=== PATIENT | female | born 1960 | race Caucasian/White ===

== ENCOUNTER → 2017-06-12 | Outpatient (CLI) | payer BC ==
[~2017-06-12] MED LIST: LORTAB 5/500 501 TAB PO; MEVACOR40 MG; MOTRIN 600600 MG/TAB PO; ZOVIRAX 200MG200 MG PO
== END ==
LOC: MC.RAD 06:53
DX: Z12.31 Encounter for screening mammogram for malignant neoplasm of breast (principal)

== ENCOUNTER → 2018-06-25 | Outpatient (CLI) | payer BC | LOC: MC.RAD 14:11 | DX: Z12.31 Encounter for screening mammogram for malignant neoplasm of breast (principal); N63.10 Unspecified lump in the right breast, unspecified quadrant ==

== ENCOUNTER → 2018-07-10 | Outpatient (CLI) | payer BC | LOC: MC.RAD 07:52 | DX: N60.01 Solitary cyst of right breast (principal) | CPT/HCPCS: G0279 ==

== ENCOUNTER → 2019-02-11 | Outpatient (CLI) | payer BC | LOC: MC.RAD 13:41 | DX: N64.89 Other specified disorders of breast (principal) ==

== ENCOUNTER → 2019-05-25 | Outpatient (CLI) | payer BC | LOC: COL.RAD 09:44 | DX: Z82.49 Family history of ischemic heart disease and other diseases of the circulatory system (principal) | CPT/HCPCS: Q9967 ==

== ENCOUNTER → 2020-08-24 | Outpatient (CLI) | payer BC | LOC: MC.RAD 09:40 | DX: Z12.31 Encounter for screening mammogram for malignant neoplasm of breast (principal) ==

== ENCOUNTER 2020-09-01 11:56 | Day surgery (SDC) | payer BC ==
[2020-09-01] VITALS (11 sets, daily range): BP systolic 120–145; BP diastolic 67–85; PULSE 66–82; TEMP 98
[~2020-09-01] VITALS: Ht 166.4 cm; Wt 68.4 kg
[2020-09-01 12:36] LABS: HEMATOCRIT 42.4 % (37.0-47.0); MEAN CELL VOLUME 89 fl (80.0-100.0); MEAN CORPUSCULAR HEMOGLOBIN 29 pg (27.0-31.0); MEAN CORPUSCULAR HGB CONC 33 g/dl (33.0-37.0); MEAN PLATELET VOLUME 8.7 fl (7.4-10.4); PLATELET COUNT 344 K/mm3 (130-400); RED BLOOD COUNT 4.77 M/mm3 (4.10-5.30); REDCELL DISTRIBUTION WIDTH-CV 13.5 % (11.5-14.5)
[2020-09-01 12:47] LABS: CALCIUM 9.8 mg/dL (8.4-10.2); CREATININE, serum 0.69 (0.52-1.25); POTASSIUM 3.6 mmol/L (3.4-5.0)
[2020-09-01] MEDS ORDERED: MEVACOR40 MG PO (13:04)
[2020-09-01] MEDS ORDERED: ASPIRIN E.C. 8181 MG PO (13:05)
[2020-09-01 13:08] LABS: PROTHROMBIN TIME 11.4 SECONDS (9.7-12.8)
[2020-09-01 13:11] LABS: PARTIAL THROMBOPLASTIN TIME 34.4 SECONDS (26.0-37.0)
--- NOTE | 2020-09-01 14:30 | NUR ---
Report from Ollie MOREJON. 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 Right Tband with 16 cc air, good pulses and cap refill < 3 secs noted. VSS.
--- NOTE | 2020-09-01 17:30 | NUR ---
16 cc air released from right Tband and dressing applied. INT discontinued intact. Discharge instructions given. Transferred to private car by michael
== END 2020-09-01 17:50 | disposition home or self-care (01) ==
LOC: COL.CAR 11:56
PROVIDERS: Internal Medicine Interventional Cardiology
DX: R07.89 Other chest pain (principal); Z20.822 Contact with and (suspected) exposure to COVID-19; E78.5 Hyperlipidemia, unspecified; Z79.899 Other long term (current) drug therapy; Z79.82 Long term (current) use of aspirin; Z80.8 Family history of malignant neoplasm of other organs or systems; Z80.7 Family history of other malignant neoplasms of lymphoid, hematopoietic and related tissues
CPT/HCPCS: C1769; J1644; J2250; J3010; Q9967